=== PATIENT | male | born 1995 | race Hispanic/Latino ===

== ENCOUNTER 2018-08-13 20:25 | Emergency (ER) | payer SELFPAY ==
--- NOTE | 2018-08-13 21:33 | ULT ---
Scrotal ultrasound: 08/13/2018 COMPARISON: None HISTORY: Pain TECHNIQUE: Multiplanar grayscale sonographic imaging of the scrotal contents with Doppler interrogati on of the testicles, including color flow and spectral analysis FINDINGS: Right testicle measures 2.8 x 4.4 x 2.1 cm. Normal blood flow noted within the right testic le with no evidence for a testicular mass. Right epididymal head measures 9 x 5 mm. There is a trace right hydrocele. The left testicle measures 4.3 x 2.1 x 2.6 cm. Normal blood flow noted within the left testicle with no evidence for a testicular mass. Left epididymal head measures 9 x 6 mm. Trace left hydrocele. A left-sided varicocele is noted. Pression: Small bilateral hydroceles. Left varicocele noted.
== END 2018-08-13 22:22 | disposition home or self-care (01) ==
LOC: ERS 20:25
DX: I86.1 Scrotal varices (principal)
CPT/HCPCS: 76870; 93976

== ENCOUNTER 2020-09-30 02:41 | Emergency (ER) | payer SELFPAY | END 2020-09-30 05:40 | disposition home or self-care (01) | LOC: ERS 02:41 | DX: L25.9 Unspecified contact dermatitis, unspecified cause (principal) | CPT/HCPCS: 99282 ==